=== PATIENT | male | born 1980 | race Two or more races ===

== ENCOUNTER 2020-01-15 10:48 | Inpatient (IN) | payer OTHER ==
[~2020-01-15] VITALS: Ht 175.3 cm; Wt 77.5 kg
[2020-01-15] MEDS ORDERED: ONDANSETRON HCL 4 MG/2 ML VIAL IV ONE (11:15)
[2020-01-15] MEDS ORDERED: HYDROmorphone HCL 2 MG/ML VL IV ONE (11:15)
[2020-01-15] MEDS ORDERED: NITROGLYCERIN 0.4 MG SL TAB SL PRN (12:15)
[2020-01-15] MEDS ORDERED: MORPHINE SULF INJ 2 MG/ML SYRINGE 1ML IV PRN (12:15)
[2020-01-15 13:39] LABS: Basophils # (auto) 0 10 ^3/uL (0-0.2); Basophils % (auto) 0.1 % (0.0-2.0); Eosinophils # (auto) 0 10 ^3/uL (0-0.8); Hematocrit 43.2 % (41.0-53.0); Hemoglobin 14.8 g/dL (13.5-17.5); Lymphocytes # (auto) 0.6 10 ^3/uL (0.4-5.4); Lymphocytes % (auto) 4.4 % (10.0-50.0); Mean Corpuscular Hemoglobin 31.8 pg (28.0-32.0); Mean Corpuscular Hgb Conc. 34.2 g/dL (32.0-36.0); Monocytes # (auto) 0.6 10 ^3/uL (0-1.3); Monocytes % (auto) 4.7 % (0.0-12.0); Neutrophils # (auto) 12.6 10 ^3/uL (1.6-8.6); Neutrophils % (auto) 90.8 % (37.0-80.0); Platelet Count (auto) 201 10^3/uL (140-450); Red Blood Cells 4.65 10^6/uL (4.5-5.90); Red Cell Distribution Width 12.9 % (11.8-14.3); White Blood Cell 13.8 10^3/uL (4.4-10.8)
[2020-01-15 13:46] LABS: INR 1.03 (0.9-1.15); Partial Thromboplastin Time 25.8 sec (23.0-31.2)
[2020-01-15 13:56] LABS: Albumin 3.9 g/dL (3.4-5.0); Calcium 8.7 mg/dL (8.5-10.1)
[2020-01-15 13:59] LABS: BUN/Creatinine Ratio 10.9; Bilirubin, Total 0.5 mg/dL (0.2-1.0); Total Protein 7.3 g/dL (6.4-8.2)
[2020-01-15 14:30] VITALS: BP 99/68
[2020-01-15 16:32] VITALS: BP 123/67
[2020-01-15] MEDS: traMADol HCL 50 MG TAB PO PRN (17:40)
[2020-01-15] MEDS: ONDANSETRON HCL 4 MG/2 ML VIAL IV PRN (17:40)
[2020-01-15 22:00] VITALS: BP 140/69
[2020-01-16 05:01] VITALS: BP 128/77
[2020-01-16 09:00] VITALS: BP 133/69
[2020-01-16] MEDS: traMADol HCL 50 MG TAB PO PRN ×2 (09:00→16:18)
[2020-01-16 12:25] VITALS: BP 138/75
[2020-01-16] MEDS: ONDANSETRON HCL 4 MG/2 ML VIAL IV PRN (16:18)
[2020-01-16 16:52] VITALS: BP 127/73
[2020-01-16 22:49] VITALS: BP 135/64
[2020-01-17 06:23] VITALS: BP 138/75
[2020-01-17 09:00] VITALS: BP 144/73
[2020-01-17 11:01] VITALS: BP 144/73
[2020-01-17 13:00] VITALS: BP 130/65
== END 2020-01-17 14:45 | DRG 562 ==
LOC: ER 10:48 → EDBD 10:48 → EEVIPCON 10:48 → WEST WING 10:49
PROVIDERS: ADMIT Internal Medicine; ATTEND Internal Medicine
DX: S52.602A Unspecified fracture of lower end of left ulna, initial encounter for closed fracture (principal); S06.331A Contusion and laceration of cerebrum, unspecified, with loss of consciousness of 30 minutes or less, initial encounter; S06.0X1A Concussion with loss of consciousness of 30 minutes or less, initial encounter; S40.012A Contusion of left shoulder, initial encounter; S80.02XA Contusion of left knee, initial encounter; S09.8XXA Other specified injuries of head, initial encounter; S16.1XXA Strain of muscle, fascia and tendon at neck level, initial encounter; S62.102A Fracture of unspecified carpal bone, left wrist, initial encounter for closed fracture; Y04.0XXA Assault by unarmed brawl or fight, initial encounter; Y93.89 Activity, other specified; Y92.149 Unspecified place in prison as the place of occurrence of the external cause; Y92.89 Other specified places as the place of occurrence of the external cause; Y99.8 Other external cause status
CPT/HCPCS: 36415; 70450; 70551; 72125; 73030; 73100; 73560; 80053; 85025; 85610; 85730; 96374; 96375; G0378; J2405